=== PATIENT | female | born 1965 | race Caucasian/White ===

== ENCOUNTER → 2017-03-07 | Outpatient (REF) | payer OTHER ==
[~2017-03-07] MED LIST: ADVI200C5 PO; LAMI250T3 PO; MULT1TAB8 PO
== END ==
LOC: M LAB REF 16:35
PROVIDERS: ATTEND Physician Assistant
DX: N39.0 Urinary tract infection, site not specified (principal)

== ENCOUNTER → 2017-05-29 | Outpatient (REF) | payer OTHER ==
[~2017-05-29] MED LIST changes: +LAMI1TAB6 PO; -LAMI250T3 PO
== END ==
LOC: M LAB REF 13:02
PROVIDERS: ATTEND Obstetrics & Gynecology
DX: N94.12 Deep dyspareunia (principal); N39.3 Stress incontinence (female) (male)

== ENCOUNTER → 2017-07-31 | Outpatient (CLI) | payer OTHER ==
--- NOTE | 2017-07-31 10:06 | REP ---
Bilateral screening digital mammogram: Q 29 T 26 May 19, 2017. Comparison is 02/13/2010. There is dense breast parenchyma, unchanged. Code T12. Impression: There is no evidence of malignancy. BIRADS category one negative mammogram. T1 T 25 T 20 Patient letter M1 dense breasts
== END ==
LOC: M WHC 08:56
PROVIDERS: ATTEND Obstetrics & Gynecology
DX: Z12.39 Encounter for other screening for malignant neoplasm of breast (principal)

== ENCOUNTER → 2018-03-11 | Outpatient (REF) | payer OTHER | LOC: M LAB REF 11:50 | DX: N39.0 Urinary tract infection, site not specified (principal) ==

== ENCOUNTER → 2018-10-13 | Outpatient (CLI) | payer OTHER ==
[~2018-10-13] MED LIST changes: -LAMI1TAB6 PO; +LAMI250T3 PO
--- NOTE | 2018-10-13 09:54 | REP ---
Chest x-ray: Two views. History: Cough . Comparison study: No comparison chest x-ray . Findings: The lungs are well inflated and free of infiltrate. The pleural angles are sharp. The heart size is normal. Pulmonary vasculature is not increased. No significant bony abnormality is seen. Impression: Negative chest x-ray. Electronically Signed by Caleb Pavon MD 10/13/2018 09:46 A
== END ==
LOC: M WUC 09:28
PROVIDERS: ATTEND Physician Assistant
DX: R05 Cough (principal)

== ENCOUNTER → 2019-02-26 | Outpatient (CLI) | payer OTHER ==
--- NOTE | 2019-02-26 11:35 | REP ---
LEFT FOOT, FOUR VIEWS: HISTORY: Pain. There is no acute fracture or dislocation. The joint spaces are normal in appearance. IMPRESSION: There is no acute fracture or dislocation. Electronically Signed by Domenic Arroyo MD 02/26/2019 11:38 A
--- NOTE | 2019-02-26 11:36 | REP ---
LEFT OS CALCIS, TWO VIEWS: HISTORY: Pain. There is no acute fracture or dislocation. The joint space is normal in appearance. IMPRESSION: There is no acute fracture or dislocation. Electronically Signed by Domenic Arroyo MD 02/26/2019 11:38 A
== END ==
LOC: M WUC 10:52
PROVIDERS: ATTEND Physician Assistant
DX: M25.572 Pain in left ankle and joints of left foot (principal)

== ENCOUNTER → 2019-07-20 | Outpatient (CLI) | payer OTHER ==
--- NOTE | 2019-07-20 11:54 | REPMRS ---
Patient History The patient states she had a clinical breast exam in 05/2019. Patient is postmenopausal. No known family history of cancer. Taking estrogen for 2 years 1 month. 3D TOMOSYNTHESIS WAS PERFORMED. The [facility] lifetime risk for breast cancer is 7.2%. Digital Woman Screen Mammo: July 20, 2019 - Exam #: [id number] Bilateral CC and MLO view(s) were taken. Technologist: Leni Prajapati Technologist Prior study comparison: July 31, 2017, digital woman screen mammo performed at [facility]. July 29, 2015, digital woman screen mammo performed at [facility]. FINDINGS: The breast tissue is heterogeneously dense. This may lower the sensitivity of mammography. There has been no change in the appearance of the mammogram from the prior studies. There is a moderate amount of residual fibroglandular tissue which is fairly symmetric. There is no interval development of dominant mass, areas of architectural distortion, or clustered microcalcification typical of malignancy. Assessment: BI-RADS/ACR category 1 mammogram. Negative Mammogram. Recommendation Routine screening mammogram in 1 year (for women over age 40). This mammogram was interpreted with the aid of an FDA-approved computer-aided dectection system. Electronically Signed By: Erasmo Drew MD 07/20/19 [id number]
== END ==
LOC: M WHC 10:56
PROVIDERS: ATTEND Obstetrics & Gynecology
DX: Z12.31 Encounter for screening mammogram for malignant neoplasm of breast (principal); Z78.0 Asymptomatic menopausal state

== ENCOUNTER → 2020-08-08 | Outpatient (CLI) | payer OTHER ==
--- NOTE | 2020-08-08 16:05 | REPMRS ---
Patient History The patient states she had a clinical breast exam in 2019. No known family history of cancer. Taking estrogen for 2 years 1 month. Digital Woman Screen Mammo: August 08, 2020 - Exam #: [id number] Bilateral CC and MLO view(s) were taken. Technologist: Fatemeh Galeas, Technologist Prior study comparison: July 20, 2019, bilateral digital woman screen mammo performed at [facility]. July 31, 2017, digital woman screen mammo performed at [facility]. July 29, 2015, digital woman screen mammo performed at [facility]. FINDINGS: There are scattered fibroglandular densities. The Volpara volumetric breast density category is:B. There has been no change in the appearance of the mammogram from the prior studies. There is a mild amount of scattered fibroglandular density which is fairly symmetric. There is no interval development of dominant mass, architectural distortion, or grouped microcalcification suggestive of malignancy. 3-D tomosynthesis shows no additional findings. Assessment: BI-RADS/ACR category 1 mammogram. Negative Mammogram. Recommendation Routine screening mammogram of both breasts in 1 year (for women over age 40). This patient's Lifetime Breast Cancer Risk is estimated at 7.0 %. This mammogram was interpreted with the aid of an FDA-approved computer-aided dectection system. Electronically Signed By: Jose D Pavon MD 08/08/20 [id number]
== END ==
LOC: M WHC 14:57
PROVIDERS: ATTEND Obstetrics & Gynecology
DX: Z12.31 Encounter for screening mammogram for malignant neoplasm of breast (principal)

== ENCOUNTER → 2021-06-16 | Outpatient (REF) | payer OTHER ==
[2021-06-16 11:56] LABS: APPEARANCE, URINE HAZY (CLEAR); BILIRUBIN, URINE AUTO NEGATIVE (NEGATIVE); BLOOD, URINE BLOOD NEGATIVE (NEGATIVE); COLOR, URINE AMBER (YELLOW); GLUCOSE, URINE (UA) AUTO NEGATIVE (NEGATIVE); KETONE, URINE AUTO NEGATIVE (NEGATIVE); LEUKOCYTE ESTERASE, URINE AUTO NEGATIVE (NEGATIVE); NITRITE, URINE AUTO NEGATIVE (NEGATIVE); PROTEIN, URINE AUTO NEGATIVE (NEGATIVE); SPECIFIC GRAVITY URINE AUTO 1.025 (1.002-1.035); UROBILINOGEN, URINE AUTO 0.2 mg/dL (0.0-2.0)
[2021-06-16 11:57] LABS: BACTERIA, URINE AUTO NEGATIVE (NEGATIVE); MUCUS, URINE SMALL (NEGATIVE); RBC, URINE AUTO 0 /HPF (0-3); SQUAMOUS EPITHELIAL CELL UR AU 0 /HPF (0-6); WBC, URINE AUTO 0 /HPF (0-3)
== END ==
LOC: M LAB REF 11:41
PROVIDERS: ATTEND Obstetrics & Gynecology
DX: N39.3 Stress incontinence (female) (male) (principal)

== ENCOUNTER → 2021-07-04 | Outpatient (CLI) | payer OTHER ==
--- NOTE | 2021-07-04 11:00 | REP ---
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 Patient reports inversion of the left nipple for over a year. COMPARISON: Mammography is reviewed from August 08, 2020, July 20, 2019, and July 31, 2017. TECHNIQUE: Craniocaudal and mediolateral views were obtained bilaterally. Routine views of the left breast are augmented by magnified focal spot-compression CC and true mL views of the subareolar region. 3D tomography is deployed. Targeted left breast subareolar sonography is carried out. FINDINGS: Scattered fibroglandular elements are seen bilaterally. No suspicious or dominant density is seen. No microcalcification or architectural distortion is seen. No worrisome skin change is appreciated. 3-D tomosynthesis shows no additional finding. The nipples and subareolar breast tissue are unchanged from the 2017 prior mammography bilaterally. The Volpara volumetric breast density pattern is B. Targeted subareolar sonography left breast. Mildly heterogeneous fibroglandular background echotexture is seen. No dilated ducts, mass, or cyst is observed. No sonographic abnormality.. IMPRESSION: BIRADS/ACR category 1 negative mammogram. This patient's Tyrer-Cuzick lifetime breast cancer risk assessment score is 6.8%. This mammogram was interpreted with the aid of an FDA-approved computer-aided detection system. The patient states she had a clinical breast exam in May of 2021. The patient letter being requested is M2. RECOMMENDATION: Repeat screening mammography recommended 1 year (for women over 40). Clinical follow-up. <Electronically signed by Jose D Pavon > 07/04/21 [id number]
== END ==
LOC: M WHC 09:06
PROVIDERS: ATTEND Nurse Practitioner Adult Health
DX: D48.62 Neoplasm of uncertain behavior of left breast (principal)
CPT/HCPCS: 76642; 77066; G0279

== ENCOUNTER → 2021-09-02 | Outpatient (CLI) | payer OTHER ==
[~2021-09-02] MED LIST changes: +ATOR1TAB21 PO; +CLAR10CA3 PO; +D 1010004 PO; +ESTR62CR TOP; +HM C500T4 PO; +IBUP-1022 PO; +VITMTA PO
== END ==
LOC: M LABSMTC 09:10
PROVIDERS: ATTEND Anesthesiology
DX: Z01.812 Encounter for preprocedural laboratory examination (principal); Z20.822 Contact with and (suspected) exposure to COVID-19

== ENCOUNTER 2021-09-07 07:24 | Day surgery (SDC) | payer OTHER ==
[~2021-09-07] VITALS: Ht 149.9 cm; Wt 63.5 kg
[~2021-09-07 07:24] MED LIST changes: +LR 1,000 ML IV ONE
[2021-09-07] MEDS ORDERED: ceFAZolin SOD 2 GM in IV 1 EA IV ONE (08:20)
[2021-09-07] MEDS ORDERED: VASOPRESSIN INJ 20 UNITS/ML VIAL As Ordered ONE (08:51)
[2021-09-07] MEDS ORDERED: ceFAZolin 2 GM/D5W 50 ML IV BAG (J0690 PER 500MG) As Ordered ONE (09:06)
[2021-09-07] MEDS ORDERED: propofoL 200 MG/20 ML VIAL As Ordered ONE ×2 (09:22→09:41)
[2021-09-07] MEDS ORDERED: MIDAZOLAM INJ 2MG/2ML VIAL (J2250 PER 1MG) As Ordered ONE (09:22)
[2021-09-07] MEDS ORDERED: fentaNYL 100 MCG/2 ML INJECTION As Ordered ONE (09:22)
[2021-09-07] MEDS ORDERED: dexameTHASONE 4 MG/ML 1ML VIAL (J1100 PER 1MG) As Ordered ONE (09:23)
[2021-09-07] MEDS ORDERED: ONDANSETRON 4MG/2ML VIAL As Ordered ONE (09:23)
[2021-09-07] MEDS ORDERED: CHLOROPROCAINE PRES. FREE 2% 20ML VIAL As Ordered ONE (09:27)
[2021-09-07] MEDS ORDERED: PHENYLephrine 500MCG 5ML (100MCG/ML) SYRINGE As Ordered ONE (10:06)
[2021-09-07] MEDS ORDERED: ONDANSETRON 4MG/2ML VIAL IV PRN (10:50)
[2021-09-07] MEDS ORDERED: LR 1,000 ML IV SCH ×2 (10:50)
[2021-09-07] MEDS ORDERED: fentaNYL 100 MCG/2 ML INJECTION IV PRN (10:50)
[2021-09-07] MEDS ORDERED: METOCLOPRAMIDE INJ 10MG/2ML VIAL (J2765 PER 1) IV PRN (10:50)
[2021-09-07] MEDS ORDERED: NORCO, ANEXSIA 5/325MG TABLET (HYDROcodone/ACETAMINOPHEN) PO PRN (11:45)
[2021-09-07] MEDS ORDERED: IBUPROFEN 600MG TAB PO PRN (11:45)
[2021-09-07 12:25] VITALS: BP 131/74
== END 2021-09-07 12:25 | disposition home or self-care (01) ==
LOC: M SDC 07:24
PROVIDERS: ATTEND Obstetrics & Gynecology
DX: N39.3 Stress incontinence (female) (male) (principal); E78.5 Hyperlipidemia, unspecified; Z87.891 Personal history of nicotine dependence; Z79.899 Other long term (current) drug therapy; Z88.8 Allergy status to other drugs, medicaments and biological substances; Z88.0 Allergy status to penicillin
CPT/HCPCS: 57288; 93005; C1771; J0690; J1100; J2250; J2370; J2400; J2405; J3010

== ENCOUNTER → 2022-08-10 | Outpatient (CLI) | payer OTHER ==
[~2022-08-10] MED LIST changes: -LR 1,000 ML IV ONE
== END ==
LOC: M WHC 09:57
PROVIDERS: ATTEND Nurse Practitioner Adult Health
DX: Z12.31 Encounter for screening mammogram for malignant neoplasm of breast (principal)

== ENCOUNTER → 2022-09-19 | Outpatient (REF) | payer OTHER | LOC: M LAB REF 16:10 | PROVIDERS: ATTEND Nurse Practitioner Adult Health | DX: K21.9 Gastro-esophageal reflux disease without esophagitis (principal) ==

== ENCOUNTER → 2023-08-19 | Outpatient (CLI) | payer OTHER | LOC: M WHC 13:09 | PROVIDERS: ATTEND Nurse Practitioner Adult Health | DX: Z12.31 Encounter for screening mammogram for malignant neoplasm of breast (principal) ==